=== PATIENT | female | born 1960 | race Caucasian/White ===

== ENCOUNTER 2021-10-15 13:40 | Outpatient (CLI) | payer BC ==
[2021-10-16 11:19] LABS: SARS-CoV-2 PCR by NAA Not Detected (NotDetected)
== END 2021-10-15 13:41 | disposition home or self-care (01) ==
LOC: CSHLAB 13:40
PROVIDERS: ATTEND Internal Medicine
DX: Z20.822 Contact with and (suspected) exposure to COVID-19 (principal)
CPT/HCPCS: U0003; U0005